=== PATIENT | female | born 1950 | race Native Hawaiian/Other Pacific Islander ===

== ENCOUNTER 2017-08-01 04:23 | Observation (INO) | payer OTHER, MEDICARE ==
[2017-08-01 04:31] VITALS: BMI 26.1
--- NOTE | 2017-08-01 04:53 | C.PDOC ---
History Of Present Illness 66 year old female presents to the ED c/o generalized weakness. Patient states waking up from her bed she slipped and fell on the floor. Patient has a left parietal tumor and is schedule for biopsy on 08/10 at [facility]. Patient also had right sided hemiplegia, patient reports she remembers the event. Patient is currently c/o generalized weakness now including her left side. Patient denies LOC, nausea, vomiting, diarrhea, fever, chills. Time Seen by Provider: 08/01/17 04:44 Chief Complaint (Nursing): Medical Clearance History Per: Patient History/Exam Limitations: no limitations Onset/Duration Of Symptoms: Hrs Current Symptoms Are (Timing): Still Present Severity: Mild Pain Scale Rating Of: 3 Reports Recently: Treated By A Physician Recent travel outside of the [place]: No Additional History Per: Patient Past Medical History Reviewed: Historical Data, Nursing Documentation, Vital Signs Vital Signs: Last Vital Signs Temp 98.3 F 08/01/17 04:29 Pulse 61 08/01/17 05:42 Resp 16 08/01/17 05:42 BP 134/75 08/01/17 05:42 Pulse Ox 99 08/01/17 05:57 - Medical History PMH: Hyperthyroidism, TIA Surgical History: No Surg Hx Family History: States: Unknown Family Hx - Social History Hx Alcohol Use: No Hx Substance Use: No Review Of Systems Constitutional: Positive for: Weakness. Negative for: Fever, Chills Eyes: Negative for: Vision Change Cardiovascular: Negative for: Chest Pain Respiratory: Negative for: Shortness of Breath Gastrointestinal: Negative for: Nausea, Vomiting Musculoskeletal: Negative for: Back Pain Skin: Negative for: Rash Neurological: Positive for: Weakness. Negative for: Numbness, Headache, Dizziness Psych: Negative for: Anxiety Physical Exam - Physical Exam Appears: Non-toxic, No Acute Distress Skin: Warm, Dry Head: Normacephalic Eye(s): bilateral: Normal Inspection Nose: No Discharge Oral Mucosa: Moist Neck: Supple Chest: Symmetrical Cardiovascular: Rhythm Regular, No Murmur Respiratory: No Rales, No Rhonchi, No Wheezing Gastrointestinal/Abdominal: Soft, No Tenderness Back: Normal Inspection Extremity: No Pedal Edema Extremity: Bilateral: Normal Color And Temperature Pulses: Left Dorsalis Pedis: Normal, Right Dorsalis Pedis: Normal Neurological/Psych: Oriented x3, Other (right sided hemiplegia) Gait: Unable To Assess ED Course And Treatment - Laboratory Results Result Diagrams: 08/01/17 05:06 08/01/17 05:06 ECG: Interpreted By Me, Viewed By Me ECG Rhythm: Sinus Rhythm (62), Nonspecific Changes O2 Sat by Pulse Oximetry: 99 (On RA) Pulse Ox Interpretation: Normal - Radiology CXR: Interpreted by Me, Viewed By Me CXR Interpretation: No: Infiltrates, Fracture, Pnemothorax - CT Scan/US CT head Other Rad Studies (CT/US): Read By Radiologist, Radiology Report Reviewed CT/US Interpretation: Addendum created by Osmani Morin MD on 08/01/2017 5:54 AM Eastern Time ([place] & [place]). Brain: Mild atrophy. No intracranial hemorrhage. Extensive vasogenic edema within left parietal. region. Suggestion of faint lesion within area of edema. Few scattered foci of decreased attenuation. within periventricular/subcortical white matter. Grossly preserved main-white matter differentiation. IMPRESSION: 1. Vasogenic edema with suspected underlying lesion within left parietal region. Recommend MRI. 2. Probable chronic ischemic white matter changes. 3. Incidental/non-acute findings are described above. Addendum created by Osmani Morin MD on 08/01/2017 5:31 AM Eastern Time ([place] & [place]). THIS REPORT CONTAINS FINDINGS THAT MAY BE CRITICAL TO PATIENT CARE. The. findings were verbally communicated via telephone conference with Dr. Loyd at 5:31 AM EDT. on 08/01/2017. The findings were acknowledged and understood. Initial Report created on 08/01/2017 5:19 AM Eastern Time ([place] & [place]). EXAM: CT Head Without Intravenous Contrast. CLINICAL HISTORY: 66 years old, female; Pain; Headache; Headache not specified ; Additional info: R/O bleed. TECHNIQUE: Axial computed tomography images of the head/brain without intravenous contrast. All CT scans at. this facility use one or more dose reduction techniques, viz.: automated exposure control; ma/ kVadjustment per patient size (including targeted exams where dose is matched to indication; i.e. head);. or iterative reconstruction technique. Coronal and sagittal reformatted images were created and reviewed. COMPARISON: No relevant prior studies available. FINDINGS: Brain: Mild atrophy. No intracranial hemorrhage. Extensive vasogenic edema within left parietal. region. Suggestion of faint lesion within area of edema. Grossly preserved main- white matter. differentiation. Midline shift: None. Ventricles: No hydrocephalus. Bones/joints: No acute fracture. Degenerative changes of LEFT temporomandibular joint. Soft tissues: Unremarkable. Sinuses: Scattered minimal mucosal thickening of ethmoid sinuses. Mastoid air cells: No mastoid effusion. Orbits: Unremarkable as visualized. Sella: Mildly prominent sella with CSF density and flattening of pituitary gland. IMPRESSION: 1. Vasogenic edema with suspected underlying lesion within left parietal region. Recommend MRI. 2. Incidental/non-acute findings are described above. Progress Note: Plan: - Ct head. - Labs. - CXR. - UA Disposition Discussed With Dr.: Maira Fernando Comment: accepted the pt on her service and took over the care at 6 AM Doctor Will See Patient In The: Hospital Counseled Patient/Family Regarding: Studies Performed, Diagnosis - Disposition Disposition: HOSPITALIZED Disposition Time: 04:53 Condition: FAIR Forms: [facility] ([place]) - Clinical Impression Clinical Impression: Dizziness, Brain tumor, Right hemiplegia - Scribe Statement The provider has reviewed the documentation as recorded by the Scribe Robin Gustafson All medical record entries made by the Scribe were at my direction and personally dictated by me. I have reviewed the chart and agree that the record accurately reflects my personal performance of the history, physical exam, medical decision making, and the department course for this patient. I have also personally directed, reviewed, and agree with the discharge instructions and disposition. Decision To Admit - Pt Status Changed To: Hospital Disposition Of: Inpatient - Admit Certification Admit to Inpatient:: After my assessment, the patient will require hospitalization for at least two midnights. This is because of the severity of symptoms shown, intensity of services needed, and/or the medical risk in this patient being treated as an outpatient. - InPatient: Physician Admission Certification: I certify that this patient requires 2 or more midnights of care for the following reason:: After my assessment, the patient will require hospitalization for at least two midnights. This is because of the severity of symptoms shown, intensity of services needed, and/or the medical risk in this patient being treated as an outpatient. - . Bed Request Type: Regular Admitting Physician: Maira Fenrando Patient Diagnosis: Dizziness, Brain tumor, Right hemiplegia
[2017-08-01 05:09] LABS: BASO # 0.1 K/uL (0.0-0.2); BASO % 1.3 % (0.0-2.0); EOS # 0.2 K/uL (0.0-0.7); EOS % 3.1 % (0.0-4.0); HEMOGLOBIN 14.6 g/dL (11.0-16.0); LYMPH # 1.3 K/uL (1.0-4.3); LYMPH % 17.4 % (20.0-40.0); MEAN CELL VOLUME 89.5 fL (81.0-99.0); MEAN CORPUSCULAR HEMOGLOBIN 30.9 pg (27.0-31.0); MEAN CORPUSCULAR HGB CONC 34.5 g/dL (33.0-37.0); MEAN PLATELET VOLUME 7.2 fL (7.2-11.7); MONO # 0.6 K/uL (0.0-0.8); MONO % 8.6 % (0.0-10.0); NEUT # 5.2 K/uL (1.8-7.0); NEUT % 69.6 % (50.0-75.0); NRBC % 0.1 % (0.0-2.0); RBC 4.72 Mil/uL (3.80-5.20); RED CELL DISTRIBUTION WIDTH 12.6 % (11.5-14.5); WHITE BLOOD COUNT 7.5 K/uL (4.8-10.8)
[2017-08-01 05:17] LABS: PROTHROMBIN TIME 11.4 SECONDS (9.7-12.2)
--- NOTE | 2017-08-01 05:20 | CT ---
EXAM: CT Head Without Intravenous Contrast CLINICAL HISTORY: 66 years old, female; Pain; Headache; Headache not specified; Additional info: R/O bleed TECHNIQUE: Axial computed tomography images of the head/brain without intravenous contrast. All CT scans at this facility use one or more dose reduction techniques, viz.: automated exposure control; ma/kV adjustment per patient size (including targeted exams where dose is matched to indication; i.e. head); or iterative reconstruction technique. Coronal and sagittal reformatted images were created and reviewed. COMPARISON: No relevant prior studies available. FINDINGS: Brain: Mild atrophy. No intracranial hemorrhage. Extensive vasogenic edema within left parietal region. Suggestion of faint lesion within area of edema. Grossly preserved main-white matter differentiation. Midline shift: None. Ventricles: No hydrocephalus. Bones/joints: No acute fracture. Degenerative changes of LEFT temporomandibular joint. Soft tissues: Unremarkable. Sinuses: Scattered minimal mucosal thickening of ethmoid sinuses. Mastoid air cells: No mastoid effusion. Orbits: Unremarkable as visualized. Sella: Mildly prominent sella with CSF density and flattening of pituitary gland. IMPRESSION: 1. Vasogenic edema with suspected underlying lesion within left parietal region. Recommend MRI. 2. Incidental/non-acute findings are described above.
[2017-08-01 05:22] LABS: ALB/GLOB RATIO 1.1 (1.0-2.1); ALT/SGPT 65 U/L (9-52); AST/SGOT 44 U/L (14-36); BLOOD UREA NITROGEN 14 mg/dL (7-17); CALCIUM 8.7 mg/dl (8.6-10.4); GFR AFRICAN-AMERICAN > 60; GFR NON-AFRICAN AMERICAN > 60
[2017-08-01] MEDS ORDERED: Sodium Chloride 0.9% 1,000 ML IV ONE (06:05)
[2017-08-01 06:51] LABS: SQUAMOUS EPITHIAL < 1 /hpf (0-5); URINE BACTERIA RARE (<OCC); URINE BILIRUBIN NEGATIVE (NEGATIVE); URINE BLOOD NEGATIVE (NEGATIVE); URINE CLARITY Clear (Clear); URINE COLOR Straw (YELLOW); URINE GLUCOSE (UA) NORMAL (Normal); URINE LEUKOCYTE ESTERASE TRACE Leu/uL (Negative); URINE PROTEIN NEGATIVE (NEGATIVE); URINE UROBILINOGEN NORMAL mg/dL (0.2-1.0)
--- NOTE | 2017-08-01 06:56 | RAD ---
PROCEDURE: CHEST RADIOGRAPH, 1 VIEW HISTORY: SOB COMPARISON: None available. FINDINGS: LUNGS: No acute infiltrate is appreciated bilaterally. The study is somewhat underpenetrated resulting in accentuates the bronchovascular markings. Inspiratory volume is also somewhat limited. PLEURA: No pneumothorax or pleural fluid seen. CARDIOVASCULAR: Normal. OSSEOUS STRUCTURES: No significant abnormalities. VISUALIZED UPPER ABDOMEN: Normal. OTHER FINDINGS: None. IMPRESSION: No definite acute infiltrate, pleural effusion or pneumothorax. Mildly limited inspiratory volume noted.
[2017-08-01 07:35] VITALS: BP 127/73; PULSE 63; RESP 20; TEMP 98.2; O2SAT 96
--- NOTE | 2017-08-01 11:29 | CP.PCM.HP ---
History of Present Illness - History of Present Illness History of Present Illness: Admitted this 66 years old female from the ER this AM , because she fell out of her bed. Patient had been seen by me in my office 2 weeks ago with w complain of weakness of the right side of her body. She apparently was admitted in the [facility] where she was diagnosed as a TIA. However when I called for the Records the was a Cystic lesion at the left parietral area. She was immediately referred to Dr. Christopher who saw the patient 2 days later and referred to Dr. Laguna in [place]. Luz Elena Serrano wants a cardiac clearance for she claims she was having chest pains. In the meantime apparently patient's condition has deteriorated to paralysis of the right side of of the body. Last night she tried to get out of bed and she fell for that reason the family brought her to the ER, where she was admitted. Present on Admission - Present on Admission Any Indicators Present on Admission: No Review of Systems - EENT Ears: Disequilibrium - Reproductive: Female Reproductive:Female: Menopausal - Menstruation Menstruation: Post Menopausal - Musculoskeletal Musculoskeletal: Abnormal Gait - Neurological Additional comments: Paralysis of the right side of the body. Decrease sensation of the right side of the body. Babiinski + athe right foot. Past Patient History - Past Social History Smoking Status: Never Smoked Chewing Tobacco Use: No Cigar Use: No - CARDIAC Hx Cardiac Disorders: No Hx Hypercholesterolemia: Yes - PULMONARY Hx Respiratory Disorders: No - NEUROLOGICAL Hx Paralysis: Yes Hx Transient Ischemic Attacks (TIA): Yes - HEENT Hx HEENT Problems: No - RENAL Hx Chronic Kidney Disease: No - ENDOCRINE/METABOLIC Hx Endocrine Disorders: No Hx Hyperthyroidism: Yes - HEMATOLOGICAL/ONCOLOGICAL Hx Blood Disorders: No - INTEGUMENTARY Hx Dermatological Problems: No - MUSCULOSKELETAL/RHEUMATOLOGICAL Hx Musculoskeletal Disorders: No - GASTROINTESTINAL Hx Gastrointestinal Disorders: No - PSYCHIATRIC Hx Psychophysiologic Disorder: No Hx Substance Use: No - SURGICAL HISTORY Hx Surgeries: Yes Hx Mastectomy: Yes (20 years ago oin the [facility]. Result benign.) - ANESTHESIA Hx Anesthesia: Yes Hx Anesthesia Reactions: No Meds Allergies/Adverse Reactions: Allergies Allergy/AdvReac Type Severity Reaction Status Date / Time No Known Allergies Allergy Verified 08/01/17 04:28 Physical Exam - Constitutional Appears: Non-toxic - Head Exam Head Exam: ATRAUMATIC, NORMAL INSPECTION, NORMOCEPHALIC - Eye Exam Eye Exam: EOMI, Normal appearance - ENT Exam ENT Exam: Mucous Membranes Moist - Neck Exam Neck exam: Positive for: Normal Inspection - Respiratory Exam Respiratory Exam: Clear to Auscultation Bilateral, NORMAL BREATHING PATTERN - Cardiovascular Exam Cardiovascular Exam: REGULAR RHYTHM, +S1, +S2 - GI/Abdominal Exam GI & Abdominal Exam: Normal Bowel Sounds, Soft - Rectal Exam Rectal Exam: Deferred - Extremities Exam Additional comments: Right side of the body paralyzed. - Back Exam Back exam: NORMAL INSPECTION - Neurological Exam Neurological exam: Alert, Motor Sensory Deficit, Oriented x3 Additional comments: Motor and sensory deficit at the right side. - Psychiatric Exam Psychiatric exam: Normal Affect - Skin Skin Exam: Dry, Intact, Normal Color, Warm Results - Vital Signs Recent Vital Signs: Last Vital Signs Temp 98.2 F 08/01/17 07:05 Pulse 63 08/01/17 07:05 Resp 20 08/01/17 07:05 BP 127/73 08/01/17 07:05 Pulse Ox 96 08/01/17 07:05 - Labs Result Diagrams: 08/01/17 05:06 08/01/17 05:06 Labs: Laboratory Results - last 24 hr 08/01/17 08/01/17 08/01/17 05:06 05:06 05:06 WBC 7.5 RBC 4.72 Hgb 14.6 Hct 42.2 MCV 89.5 MCH 30.9 MCHC 34.5 RDW 12.6 Plt Count 247 MPV 7.2 Neut % (Auto) 69.6 Lymph % (Auto) 17.4 L Becker % (Auto) 8.6 Eos % (Auto) 3.1 Baso % (Auto) 1.3 Neut # (Auto) 5.2 Lymph # (Auto) 1.3 Becker # (Auto) 0.6 Eos # (Auto) 0.2 Baso # (Auto) 0.1 PT 11.4 INR 1.0 APTT 37 H Sodium 142 Potassium 4.1 Chloride 102 Carbon Dioxide 26 Anion Gap 18 BUN 14 Creatinine 0.6 L Est GFR ( Amer) > 60 Est GFR (Non-Af Amer) > 60 Random Glucose 123 H Calcium 8.7 Total Bilirubin 0.3 AST 44 H ALT 65 H Alkaline Phosphatase 62 Total Protein 7.8 Albumin 4.0 Globulin 3.8 Albumin/Globulin Ratio 1.1 Urine Color Urine Clarity Urine pH Ur Specific Freer Urine Protein Urine Glucose (UA) Urine Ketones Urine Blood Urine Nitrate Urine Bilirubin Urine Urobilinogen Ur Leukocyte Esterase Urine WBC (Auto) Urine RBC (Auto) Ur Squamous Epith Cells Ur Transition Epith Cell Urine Bacteria 08/01/17 06:45 WBC RBC Hgb Hct MCV MCH MCHC RDW Plt Count MPV Neut % (Auto) Lymph % (Auto) Becker % (Auto) Eos % (Auto) Baso % (Auto) Neut # (Auto) Lymph # (Auto) Becker # (Auto) Eos # (Auto) Baso # (Auto) PT INR APTT Sodium Potassium Chloride Carbon Dioxide Anion Gap BUN Creatinine Est GFR ( Amer) Est GFR (Non-Af Amer) Random Glucose Calcium Total Bilirubin AST ALT Alkaline Phosphatase Total Protein Albumin Globulin Albumin/Globulin Ratio Urine Color Straw Urine Clarity Clear Urine pH 6.0 Ur Specific Freer 1.009 Urine Protein Negative Urine Glucose (UA) Normal Urine Ketones Negative Urine Blood Negative Urine Nitrate Negative Urine Bilirubin Negative Urine Urobilinogen Normal Ur Leukocyte Esterase Trace Urine WBC (Auto) 6 H Urine RBC (Auto) < 1 Ur Squamous Epith Cells < 1 Ur Transition Epith Cell < 1 Urine Bacteria Rare Assessment & Plan - Assessment and Plan (Free Text) Assessment: Diagnosis: Left parietal cyst with edema. Right sided paralysis. Plan: I have gotten in touch with Dr. Laguna and he will review the CT scan and call me for possible transfer. Stress test was done on this patient which was normal. \ PT, PTT was done which were normal. Patient cleared for possible surgery. if ever it will be done.
[2017-08-01] MEDS ORDERED: Dexamethasone 10 MG in Sodium Chloride 0.9% 50 ML IVP ONE (12:40)
[2017-08-01] MEDS ORDERED: Dexamethasone 4 mg/1 ml IVP SCH (18:00)
--- NOTE | 2017-08-02 16:37 | CARD ---
APPROVED REPORT EKG Measurement Heart [id number] <Conclusion> Normal sinus rhythm Normal ECG
== END 2017-08-01 14:14 | disposition home or self-care (01) ==
LOC: C.ER 04:23 → INTOOBSV 06:04 → C.6T 06:04
PROVIDERS: ADMIT Legal Medicine; ATTEND Legal Medicine
DX: G93.0 Cerebral cysts (principal); G93.6 Cerebral edema; I69.851 Hemiplegia and hemiparesis following other cerebrovascular disease affecting right dominant side; E78.00 Pure hypercholesterolemia, unspecified; E05.90 Thyrotoxicosis, unspecified without thyrotoxic crisis or storm
CPT/HCPCS: 70450; 71045; 80053; 81001; 85025; 85610; 85730; 93005; 97163; 97530; 99285; C9113; G0378; G8978; G8979; J7040